=== PATIENT | male | born 1960 | race Caucasian/White ===

== ENCOUNTER 2019-04-25 11:50 | Observation (INO) ==
--- NOTE | 2019-04-25 12:01 | Emergency Department Note ---
Disposition Clinical Impression: Facial droop Chest pain Qualifiers: Chest pain type: unspecified Qualified Code(s): R07.9 - Chest pain, unspecified Hypertension Qualifiers: Hypertension type: unspecified Qualified Code(s): I10 - Essential (primary) hypertension Disposition: Home, Self-Care Condition: Good Instructions: Chest Pain (ED), Hypertension (ED) [facility] Provider[facility] - Forms: ED Satisfaction Letter, Work/School Release Time of Disposition: 18:44 General Adult HPI - General Chief complaint: ED General Medical Stated complaint: High BP Time Seen by Provider: 04/25/19 11:58 Source: patient, EMS Mode of arrival: private vehicle Limitations: no limitations Nursing Notes Reviewed: Yes Vital Signs Reviewed: Yes - History of Present Illness HPI Narrative: Patient is a 58-year-old male with a past medical history including hypertension, hyperlipidemia, seizure history, presenting with a chief complaint of elevated blood pressures and chest pain. Patient states he has several episodes today of substernal chest pain which he describes as a crampy feeling in associated with some shortness of breath, no nausea or vomiting or diaphoresis. He states it has been happening frequently over the past several months. He can happen whenever. He denies any cough, recent illnesses, fevers or chills, abdominal pain. He states he followed up with his rails developer yesterday. 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 He was told about stroke symptoms watch out for. He states he looked at himself in the [facility] yesterday afternoon and thought he had a left facial droop. He denies any unilateral weakness or numbness, headaches, dizziness, loss of vision. He states he developed the same chest pain this morning and [facility] or [facility] care [facility]. He states his blood pressure has been elevated yesterday and today. They recommended coming to the emergency department for further evaluation. Denies history of coronary artery disease or stent placements. Pain Scale: 0 - Related Data Allergies Allergy/AdvReac Type Severity Reaction Status Date / Time bupropion [From Wellbutrin] Allergy Rash Verified 04/25/19 12:01 yellow fever vaccine live Allergy See Verified 04/25/19 12:01 Comments All systems ED: reviewed and negative except as stated. Review of Systems: As Per HPI Constitutional: Denies: fever, chills Eyes: Denies: vision change ENT ED: Denies: congestion Cardiovascular: Reports: chest pain. Denies: palpitations Respiratory: Reports: dyspnea. Denies: cough Gastrointestinal: Denies: abdominal pain, nausea, vomiting Neurological: Denies: headache, weakness, numbness, paresthesias, confusion, abnormal gait Past Medical History - Past Medical History Attestation: Yes The following information was validated with the patient. Source: patient Medical history: Reports: hyperlipidemia, hypertension, seizures Psychiatric history: Reports: bipolar, PTSD - Social History Smoking Status: Current every day smoker Smokeless Tobacco Status: No Alcohol use: Reports: none Drug use: Reports: marijuana Physical Exam - General Limitations: no limitations General appearance: alert, in no apparent distress - Head Head exam: atraumatic, normocephalic - Eye Eye exam: Present: normal appearance, PERRL, EOMI, other (left lazy eye). Absent: nystagmus - ENT ENT exam: normal exam, normal oropharynx, mucous membranes moist - Neck Neck exam: Present: normal inspection, trachea midline - Chest Chest inspection: Present: normal inspection, symmetric chest wall rise - Respiratory Respiratory exam: Present: normal lung sounds bilaterally. Absent: respiratory distress, wheezes - Cardiovascular Cardiovascular exam: Present: regular rate, normal rhythm, normal heart sounds, other (bilateral radial pusles equal) - Abdominal Exam Abdominal exam: Present: soft, Non-Tender. Absent: distention - Extremities Exam Extremities exam: Present: normal capillary refill. Absent: pedal edema, calf tenderness - Neurological Exam Neurological exam: Present: alert, oriented X3, normal gait. Absent: motor sensory deficit - Expanded Neurological Exam Speech: Present: fluid speech Cerebellar function: finger to nose: Normal, heel to diaz: Normal Motor strength - LUE: 5/5 Motor strength - RUE: 5/5 Motor strength - LLE: 5/5 Motor strength - RLE: 5/5 Upper motor neuron exam: rikki neglect: Absent bilaterally, pronator drift: Absent bilaterally Sensory exam upper extremity: light touch: Normal Sensory exam lower extremity: light touch: Normal - Psychiatric Psychiatric exam: Present: normal affect, normal mood - Skin Skin exam: Present: warm, dry. Absent: diaphoresis, pallor Course Vital Signs Temperature 97.7 F 04/25/19 11:57 Pulse Rate 63 04/25/19 11:57 Respiratory Rate 15 04/25/19 11:57 Blood Pressure 152/92 04/25/19 11:57 O2 Sat by Pulse Oximetry 98 04/25/19 11:57 Temperature 97.7 F 04/25/19 11:57 Pulse Rate 68 04/25/19 14:37 Respiratory Rate 22 04/25/19 14:37 Blood Pressure 147/69 04/25/19 14:37 O2 Sat by Pulse Oximetry 100 04/25/19 14:37 Oxygen Delivery Oxygen Delivery Room Air Medical Decision Making - MDM Narrative Medical decision making narrative: Patient is presenting with headache and chest pain. He states episodes of chest pain or shortness of breath occur frequently over the past several months. He is in no acute distress at this time. He was concerned he had a small left- sided facial droop that he noticed yesterday afternoon but he does not know how long its been there and his last normal. Small facial droop on the left is noted, unknown amount of time he has had it, otherwise smiles appropriately. NIHSS 1. He otherwise has no other neurologic deficits. Have a low clinical suspicion for TIA or CVA. We will obtain CT head without contrast, CBC, BMP, hepatic panel, troponin to evaluate for ACS and an organ damage from elevated blood pressures. He is chest pain-free at this time. EKG shows no acute ischemic changes. 13:50 Labs reviewed. No electrolyte abnormalities, hepatic panel normal. Creatinine elevated and do not have a baseline for the patient. CT head shows no acute intracranial abnormality. Chest x-ray shows no acute cardiopulmonary abnormality. 14:15 Hepatic panel was within normal limits. Will obtain MRI to evaluate for CVA 17:00 Discussed with MRI. Patient has a TELLES implant. Unable to locate the type of implant as the facility he had it done is closed and will not open until Sunday. MRI discussed with Dr. Colby, Radiology, who recommend obtaining CTA head and neck 18:30 CT results reviewed. No aneurysm, occlusion is noted. Patient will be admitted for stroke like symptoms, chest pain, ACS workup and stroke workup. Hospitalist has been paged for admission. 18:40 Discussed with hospitalist, Dr. Gonzalez, who accepts - Medical Records Medical records reviewed: Yes I reviewed the patient's medical records. - Lab Data Lab results reviewed: Yes I reviewed the patient's lab results. Result diagrams: 04/25/19 12:08 04/25/19 12:08 Lab Results 04/25/19 04/25/19 Range/Units 12:08 12:08 WBC 7.5 (4.3-11.1) K/mcL RBC 4.90 (4.19-5.50) M/mcL Hgb 15.7 (12.9-16.9) g/dL Hct 46.0 (37.5-50.1) % MCV 93.9 (83.0-100.0) fL MCH 32.0 (28.0-33.3) pg MCHC 34.1 (31.6-35.5) g/dL RDW 13.0 (11.5-14.5) % Plt Count 201 (140-400) K/mcL MPV 9.4 (9.4-12.4) fL Immature Gran % 0.3 (0-4) % Seg Neutrophils % 50.0 % Lymphocytes % 36.8 % Monocytes % 6.6 % Eosinophils % 5.2 % Basophils % 1.1 % Neutrophils # 3.8 (1.6-8.9) K/mcL Lymphocytes # 2.8 (0.6-4.6) K/mcL Monocytes # 0.5 (0.0-1.3) K/mcL Eosinophils # 0.4 (0.0-0.6) K/mcL Basophils # 0.1 (0.0-0.2) K/mcL Sodium 134 L (136-145) mEq/L Potassium 3.6 (3.5-5.1) mEq/L Chloride 105 (98-107) mEq/L Carbon Dioxide 23 (23-29) mEq/L BUN 18 (6-20) mg/dL Creatinine 1.44 H (0.70-1.30) mg/dL Est GFR ( Amer) > 60 (> 60) Est GFR (Non-Af Amer) 50 L (> 60) BUN/Creatinine Ratio 13 (6-26) Glucose 107 H (70-105) mg/dL Calculated Osmolality 280 (280-300) Calcium 9.3 (8.6-10.3) mg/dL Total Bilirubin 0.7 (0.3-1.0) mg/dL Direct Bilirubin 0.0 (0.0-0.2) mg/dL Indirect Bilirubin 0.7 (0.0-1.2) mg/dL AST 25 (13-39) Units/L ALT 25 (7-52) Units/L Alkaline Phosphatase 65 (34-104) Units/L Troponin I < 0.03 (< 0.04) ng/mL Serum Total Protein 6.8 (6.4-8.9) g/dL Albumin 4.4 (3.5-5.7) g/dL Globulin 2.4 (2.4-3.5) g/dL Albumin/Globulin Ratio 1.8 (1.1-2.2) - Radiology Data Radiology results reviewed: Yes I reviewed the patient's radiology results. Chest X-Ray 04/25/19 11:59 IMPRESSION: Normal appearing chest. No acute abnormality appreciated. D/ / Pilo Knox MD / Pilo Knox MD Interpreting Provider: Pilo Knox MD Head CT 04/25/19 11:59 IMPRESSION: No acute intracranial abnormality. Fluid opacified left middle ear canal and left mastoid air cells. D/ / 04/25/2019 12:52:58 Maximiliano Howe MD / aagtha Interpreting Provider: Maximiliano Howe MD - EKG Data EKG #1 EKG attestation: Yes I reviewed and interpreted this EKG. EKG results narrative: EKG obtained at 1159 shows sinus rhythm with heart rate 65, DC interval 191, QRS duration 104, QTC 435, no ST elevation, no ST depression, flattened T waves in V4, V5, V6, lead 3, no old EKG to compare to.
--- NOTE | 2019-04-25 12:04 | Emergency Department Note ---
Disposition Clinical Impression: Facial droop Chest pain Qualifiers: Chest pain type: unspecified Qualified Code(s): R07.9 - Chest pain, unspecified Hypertension Qualifiers: Hypertension type: unspecified Qualified Code(s): I10 - Essential (primary) hypertension Disposition: Home, Self-Care Condition: Good Time of Disposition: 18:45 General Adult HPI - General Chief complaint: ED General Medical Stated complaint: High BP Time Seen by Provider: 04/25/19 11:58 Source: patient, EMS Limitations: no limitations - History of Present Illness Pain Scale: 0 - Related Data Home Medications Medication Instructions Recorded Confirmed Acetaminophen [Tylenol] 500 mg PO PRN PRN 04/25/19 04/25/19 Aspirin 325 mg PO DAILY 04/25/19 04/25/19 Atenolol [Tenormin] 50 mg PO DAILY 04/25/19 04/25/19 Atorvastatin Calcium 80 mg PO DAILY 04/25/19 04/25/19 Budesonide/Formoterol 80/4.5 1 puff IH BID 04/25/19 04/25/19 [Symbicort 80/4.5] Cholecalciferol (D-3) [Vitamin D] 1,000 unit PO DAILY 04/25/19 04/25/19 Fluticasone Propionate [Flonase 9.9 ml NS DAILY 04/25/19 04/25/19 Allergy Relief] Lisinopril-HCTZ 10-12.5 [Prinzide 1 each PO DAILY 04/25/19 04/25/19 10-12.5] Methocarbamol [Robaxin-750] 750 mg PO 2-4XD 04/25/19 04/25/19 Perphenazine [Trilafon] 8 mg PO BID 04/25/19 04/25/19 Potassium Chloride [Klor-Con 10] 10 meq PO BID 04/25/19 04/25/19 Sertraline [Zoloft] 50 mg PO DAILY 04/25/19 04/25/19 Topiramate [Qudexy Xr] 200 mg PO BID 04/25/19 04/25/19 Allergies Allergy/AdvReac Type Severity Reaction Status Date / Time bupropion [From Wellbutrin] Allergy Rash Verified 04/25/19 12:01 yellow fever vaccine live Allergy See Verified 04/25/19 12:01 Comments Past Medical History - Past Medical History Medical history: Reports: hyperlipidemia, hypertension, seizures Psychiatric history: Reports: bipolar, PTSD - Social History Smoking Status: Current every day smoker Smokeless Tobacco Status: No Alcohol use: Reports: none Drug use: Reports: marijuana Physical Exam - General Limitations: no limitations General appearance: alert, in no apparent distress Course Vital Signs Temperature 97.7 F 04/25/19 11:57 Pulse Rate 63 04/25/19 11:57 Respiratory Rate 15 04/25/19 11:57 Blood Pressure 152/92 04/25/19 11:57 O2 Sat by Pulse Oximetry 98 04/25/19 11:57 Temperature 97.7 F 04/25/19 11:57 Pulse Rate 68 04/25/19 19:06 Respiratory Rate 18 04/25/19 19:06 Blood Pressure 162/94 04/25/19 19:06 O2 Sat by Pulse Oximetry 95 04/25/19 19:06 Oxygen Delivery Oxygen Delivery Room Air Medical Decision Making - Lab Data Result diagrams: 04/25/19 12:08 04/25/19 12:08 Lab Results 04/25/19 04/25/19 Range/Units 12:08 12:08 WBC 7.5 (4.3-11.1) K/mcL RBC 4.90 (4.19-5.50) M/mcL Hgb 15.7 (12.9-16.9) g/dL Hct 46.0 (37.5-50.1) % MCV 93.9 (83.0-100.0) fL MCH 32.0 (28.0-33.3) pg MCHC 34.1 (31.6-35.5) g/dL RDW 13.0 (11.5-14.5) % Plt Count 201 (140-400) K/mcL MPV 9.4 (9.4-12.4) fL Immature Gran % 0.3 (0-4) % Seg Neutrophils % 50.0 % Lymphocytes % 36.8 % Monocytes % 6.6 % Eosinophils % 5.2 % Basophils % 1.1 % Neutrophils # 3.8 (1.6-8.9) K/mcL Lymphocytes # 2.8 (0.6-4.6) K/mcL Monocytes # 0.5 (0.0-1.3) K/mcL Eosinophils # 0.4 (0.0-0.6) K/mcL Basophils # 0.1 (0.0-0.2) K/mcL Sodium 134 L (136-145) mEq/L Potassium 3.6 (3.5-5.1) mEq/L Chloride 105 (98-107) mEq/L Carbon Dioxide 23 (23-29) mEq/L BUN 18 (6-20) mg/dL Creatinine 1.44 H (0.70-1.30) mg/dL Est GFR ( Amer) > 60 (> 60) Est GFR (Non-Af Amer) 50 L (> 60) BUN/Creatinine Ratio 13 (6-26) Glucose 107 H (70-105) mg/dL Calculated Osmolality 280 (280-300) Calcium 9.3 (8.6-10.3) mg/dL Total Bilirubin 0.7 (0.3-1.0) mg/dL Direct Bilirubin 0.0 (0.0-0.2) mg/dL Indirect Bilirubin 0.7 (0.0-1.2) mg/dL AST 25 (13-39) Units/L ALT 25 (7-52) Units/L Alkaline Phosphatase 65 (34-104) Units/L Troponin I < 0.03 (< 0.04) ng/mL Serum Total Protein 6.8 (6.4-8.9) g/dL Albumin 4.4 (3.5-5.7) g/dL Globulin 2.4 (2.4-3.5) g/dL Albumin/Globulin Ratio 1.8 (1.1-2.2) Attestation Statement - Attestation Attestation: I examined this patient and my medical decision-making was reviewed with the Resident Physician. I agree with the documented findings, disposition and treatment plan as described except to the extent set forth below. EKG was reviewed with the resident. No acute ischemic changes. Patient presents to the ED with multiple complaints. The first one being he saw his eye doctor yesterday. They sedated visual field testing and told him he may have had a stroke. He will home and looked in the mirror and thought his mouth was drooping. Eyes any other symptoms of numbness or tingling. He does not qu ite is minimal and chest pain is been going on for a long time. Describes it as a cramping sensation in his chest nonradiating. [facility] and [facility] to come [facility]. On exam he is pleasant in no acute distress. His heart regular lungs are clear. He does have a mild droop of the left side of his mouth. His NIH is 1. Plan. Head CT. Cardiac workup. Attempted to get an MRI of the patient, however patient has a device that they were unable to confirm that was compatible. We obtained a CTA head and neck. No obvious lesions. Concerned the patient may have had a stroke. We will admit for further workup.
[2019-04-25 12:35] LABS: Basophils # 0.1 K/mcL (0.0-0.2); Basophils % 1.1 %; Eosinophils # 0.4 K/mcL (0.0-0.6); Eosinophils % 5.2 %; Hemoglobin 15.7 g/dL (12.9-16.9); Immature Granulocytes % 0.3 % (0-4); Lymphocytes # 2.8 K/mcL (0.6-4.6); Lymphocytes % 36.8 %; Mean Corpuscular HGB Conc 34.1 g/dL (31.6-35.5); Mean Corpuscular Volume 93.9 fL (83.0-100.0); Mean Platelet Volume 9.4 fL (9.4-12.4); Monocytes # 0.5 K/mcL (0.0-1.3); Monocytes % 6.6 %; Platelet Count 201 K/mcL (140-400); White Blood Count 7.5 K/mcL (4.3-11.1)
[2019-04-25 12:50] LABS: BUN/Creatinine Ratio 13 (6-26); Blood Urea Nitrogen 18 mg/dL (6-20); Calcium 9.3 mg/dL (8.6-10.3); Carbon Dioxide 23 mEq/L (23-29); Chloride 105 mEq/L (98-107); Glucose 107 mg/dL (70-105); Osmolality,Calculated 280 (280-300); Potassium 3.6 mEq/L (3.5-5.1); Sodium 134 mEq/L (136-145); Troponin I < 0.03 ng/mL (< 0.04); eGFR For African Americans > 60 (> 60); eGFR For Non-African Americans 50 (> 60)
[2019-04-25 12:54] LABS: Neutrophils # 3.8 K/mcL (1.6-8.9)
[2019-04-25 13:32] LABS: Alanine Aminotransferase 25 Units/L (7-52); Albumin 4.4 g/dL (3.5-5.7); Albumin/Globulin Ratio 1.8 (1.1-2.2); Alkaline Phosphatase 65 Units/L (34-104); Aspartate Amino Transferase 25 Units/L (13-39); Bilirubin,Indirect 0.7 mg/dL (0.0-1.2); Bilirubin,Total 0.7 mg/dL (0.3-1.0); Globulin 2.4 g/dL (2.4-3.5); Total Protein 6.8 g/dL (6.4-8.9)
[2019-04-25] MEDS ORDERED: Gadolinium Contrast Agent (WT Based) IV PRN (14:12)
[2019-04-25] MEDS ORDERED: Isovue-370 500 ML BOTTLE IVP ONE (17:07)
[2019-04-25] MEDS ORDERED: Naloxone 0.4 MG/ML INJ IVP PRN (18:44)
--- NOTE | 2019-04-25 20:24 | Internal Med History&Physical ---
Date of Encounter: 04/25/19 Time of Encounter: 20:13 Internal Medicine - H&P: HPI Chief complaint: Strokelike symptoms History of present illness: Mr. Barahona is a 58 year old male with a past medical history including hypertension, hyperlipidemia, seizure history, and COPD presenting with several complaints among which included chest pain, elevated blood pressure and concern for strokelike symptoms. Patient states for the past several months she has had intermittent episodes of substernal chest pain described as "crampy" in quality, nonradiating associated with shortness of breath. Patient denies any aggravating or alleviating symptoms. No associated nausea, diaphoresis with these episodes. No prior history of cardiac disease. No reports of prior cardiac stress testing. Patient does report a family history of heart disease. Currently smokes half pack a day. [id number] smoking history. Patient also reports that yesterday he was evaluated by his mural artist which noted "spotty peripheral vision"and was informed about his increased risk of stroke and instructed on identifying stroke-like symptoms. Patient returned home and at one point looked at himself in the mirror yesterday afternoon and thought he had noted left-sided facial drooping. He however is unsure of how long it has been there. No prior history of stroke or family history. Denies any focal weakness on one side or the other, numbness, headaches. Patient has a history of sei zures dating back to us 20s. He is currently on topiramate. Reports medication compliance but does admit to having a seizure last Sunday and that breakthrough seizures are not uncommon for him. Patient states he can typically feel when a seizure is coming on stating that he feels woozy and will usually sit down which was the case this time as well. Seizure was unwitnessed as he currently lives at home alone. He additionally developed some chest pain this morning in the setting of recent elevations in his blood pressure yesterday and today reporting a systolic blood pressure as high as the 180s. Patient reports his blood pressure normally runs in the 140s to 150s systolic. [facility] who recommended coming into the ED for further evaluation. Patient otherwise denies any recent illness, fever, chills, nausea, vomiting or diarrhea. No reports of orthopnea or lower extremity edema. On initial assessment, patient was afebrile, hemodynamically stable saturating appropriately on room air. Initial NIH of 1. Laboratory workup was unremarkable including a initial negative troponin. EKG shows sinus rhythm with nonspecific T-wave changes. Chest x-ray normal appearing. CT angiogram head and neck was performed which showed no focal arterial narrowing in the head and neck nor any acute intracranial abnormality. Admitted for chest pain and stroke workup. Past Med Surg Social Fam HX - Past Medical History Medical history: hyperlipidemia, hypertension, seizures Psychiatric history: bipolar, PTSD - Social History Smoking Status: Current every day smoker Smokeless Tobacco Status: No Alcohol use: none Drug use: marijuana Internal Medicine - H&P: Meds Acetaminophen [Tylenol] 500 mg PO BID PRN 04/25/19 [History] Aspirin 325 mg PO DAILY 04/25/19 [History] Atenolol [Tenormin] 50 mg PO QAM 04/25/19 [History] Atorvastatin Calcium 80 mg PO QAM 04/25/19 [History] Budesonide/Formoterol 80/4.5 [Symbicort 80/4.5] 1 puff IH BID 04/25/19 [History] Cholecalciferol (D-3) [Vitamin D] 1,000 unit PO BID 04/25/19 [History] Fluticasone Propionate [Flonase Allergy Relief] 9.9 ml NS DAILY 04/25/19 [History] Perphenazine [Trilafon] 8 mg PO BID 04/25/19 [History] Potassium Chloride [Klor-Con 10] 30 meq PO QAM 04/25/19 [History] Topiramate [Topamax] 200 mg PO BID 04/25/19 [History] Cetirizine HCl [Allergy Relief] 10 mg PO HS 04/26/19 [History] Lisinopril-HCTZ 20-12.5 [Prinzide 20-12.5] 1 tab PO QAM 04/26/19 [History] Methocarbamol [Robaxin] 500 mg PO BID 04/26/19 [History] Potassium Chloride [Klor-Con 10] 20 meq PO QPM 04/26/19 [History] Sertraline [Zoloft] 50 mg PO QAM 04/26/19 [History] Sildenafil Citrate [Viagra] 100 mg PO AD PRN 04/26/19 [History] Allergy/AdvReac Type Severity Reaction Status Date / Time bupropion [From Wellbutrin] Allergy Rash Verified 04/26/19 17:46 yellow fever vaccine live Allergy See Verified 04/26/19 17:46 Comments All Systems PM: A 10-system review of systems was performed and is negative for pertinent findings except as documented above in the HPI. - Constitutional Constitutional: no chills, no fever(s), no night sweats - EENT Eyes: no change in vision, no discharge, no pain, no photophobia Ears: no ear discharge, no ear pain, no tinnitus Nose, mouth and throat: no dysphagia, no nasal discharge, no neck pain, no sore throat - Cardiovascular Cardiovascular ROS IM: no chest pain, no diaphoresis, no dyspnea, no lightheaded ness, no palpitations, no syncope - Respiratory Respiratory: no cough, no dyspnea, no wheezing, no excessive phlegm production - Gastrointestinal Gastrointestinal: no abdominal pain, no diarrhea, no hematemesis, no hematoc hezia, no melena, no nausea, no vomiting - Musculoskeletal Musculoskeletal ROS IM: no numbness, no tingling - Integumentary Integumentary IM: no rash, no unusual bruising - Neurological Neurological ROS: no confusion, no convulsions, no focal weakness, no numbness, no tingling, no tremor(s) - Hematologic/Lymphatic Hematologic/Lymphatic: no easy bruising - Constitutional Vitals: Temp Pulse Resp BP Pulse Ox 97.7 F 68 18 158/92 95 04/25/19 11:57 04/25/19 19:06 04/25/19 20:00 04/25/19 20:00 04/25/19 19:06 Exam: General: Alert and oriented 3 lying in bed in no acute distress Skin:Normal color, no rash, no lesions. HEENT:EOM, pupils equal, round and reactive. Cardiovascular:Normal S1 & S2, no rubs, murmurs or gallops. No JVD. Pulse regular. Lungs:Normal breath sounds, no wheezes or crackles. Abdomen:Soft, non-tender, no rigidity. Extremities: No deformity, no edema or tenderness, no joint swelling or clubbing. Neurological:Normal cognition ; subtle left-sided facial droop noted.; cranial nurse 2 through 12 intact; sensation intact; no pronator drift; no dysmetria; strength 5 out of 5 in the upper and lower extremities bilaterally. Pulses:Carotid and radial pulses normal +2. Rest of the physical exam is non contributory Internal Med - H&P Results - Labs CBC & Chem 7: 04/26/19 05:19 04/26/19 08:28 Labs: Short CBC 04/25/19 Range/Units 12:08 WBC 7.5 (4.3-11.1) K/mcL Hgb 15.7 (12.9-16.9) g/dL Hct 46.0 (37.5-50.1) % Plt Count 201 (140-400) K/mcL Neutrophils # 3.8 (1.6-8.9) K/mcL BMP 04/25/19 12:08 Sodium 134 L Potassium 3.6 Chloride 105 Carbon Dioxide 23 BUN 18 Creatinine 1.44 H Glucose 107 H Calcium 9.3 Cardiac Enzymes 04/25/19 Range/Units 12:08 Troponin I < 0.03 (< 0.04) ng/mL Liver Function 04/25/19 Range/Units 12:08 Total Bilirubin 0.7 (0.3-1.0) mg/dL Direct Bilirubin 0.0 (0.0-0.2) mg/dL AST 25 (13-39) Units/L ALT 25 (7-52) Units/L Alkaline Phosphatase 65 (34-104) Units/L Albumin 4.4 (3.5-5.7) g/dL - Impressions ITS Impressions Chest X-Ray 04/25/19 11:59 IMPRESSION: Normal appearing chest. No acute abnormality appreciated. D/ / Pilo Knox MD / Pilo Knox MD Interpreting Provider: Pilo Knox MD Head CT 04/25/19 11:59 IMPRESSION: No acute intracranial abnormality. Fluid opacified left middle ear canal and left mastoid air cells. D/ / 04/25/2019 12:52:58 Maximiliano Howe MD / agatha Interpreting Provider: Maximiliano Howe MD Head CTA 04/25/19 17:07 IMPRESSION: No focal significant arterial narrowing in the head or the neck. D/ / Sha Stack / Sha Stack Interpreting Provider: Sha Stack Neck CTA 04/25/19 17:07 IMPRESSION: No focal significant arterial narrowing in the head or the neck. D/ / Sha Stack / Sha Stack Interpreting Provider: Sha Stack - Assessment and Plan (1) Facial droop Current Visit: Yes Status: Acute Assessment and plan: Patient presented with left-sided facial droop of unclear duration. Initial NIH score of 1. Risk factors include hypertension and smoking history. Laboratory workup unremarkable. EKG shows normal sinus rhythm CTA of the head and neck unremarkable. She has penile implant and therefore MRI was postponed until type of implant could be determined. There was subtle left-sided facial drooping on physical examination. No other focal findings on examination. Patient has a history of seizure disorder with one breakthrough seizure on Sunday. Unclear if this is contributing to current picture. Patient currently on 325 of aspirin daily. -Neurochecks -Hold antihypertensives for now to allow for permissive hypertension -Telemetry -We will obtain echocardiogram and bilateral carotid duplex -MRI postponed until determination of implant type. -Consult to neurology (2) Acute kidney injury Current Visit: Yes Status: Acute Assessment and plan: Laboratory workup notable for a creatinine of 1.44 and a estimated GFR 50. Unclear if this is patient's baseline. No prior blood work to compare to. No reports of recent changes in medications. Patient is on lisinopril. Patient otherwise denies any history of kidney disease. -We will obtain urine studies including spot protein creatinine ratio. Urinalysis. -We will start patient on gentle hydration and monitor response. (3) Chest pain Current Visit: Yes Status: Acute Assessment and plan: Patient reporting several month history of intermittent chest pain with no repo rted aggravating factors. Patient has a history of. Initial troponin negative EKG shows normal sinus rhythm with nonspecific T-wave changes. Patient currently on aspirin and atenolol and an JERRICA inhibitor. -Telemetry -Echocardiogram -Consider stress testing after completion of neurological evaluation. Qualifiers: Chest pain type: unspecified Qualified Code(s): R07.9 - Chest pain, unspecified (4) Hypertension Current Visit: Yes Status: Acute Assessment and plan: Blood pressure noted to be elevated at 152/92 on admission. Currently 162/105 Patient currently on atenolol and lisinopril. -We will hold lisinopril for now to allow for permissive hypertension due to concern for CVA/TIA Qualifiers: Hypertension type: essential hypertension Qualified Code(s): I10 - Essential (primary) hypertension (5) COPD (chronic obstructive pulmonary disease) Current Visit: Yes Status: Acute Assessment and plan: History of COPD not currently on oxygen. Patient continues to smoke half pack a day in the setting of a [id number] smoking history. No evidence of any acute exacerbation. Discussed smoking cessation. Patient refusing nicotine patch at this time -Resume home inhalers Qualifiers: Emphysema type: unspecified Qualified Code(s): J43.9 - Emphysema, unspecified (6) History of seizures Current Visit: Yes Status: Acute Assessment and plan: History of seizure disorder dating back to his 20s. Patient currently on topiramate and reports medication compliance but did have a breakthrough seizure on Sunday unwitnessed. Denies trauma or fall. -Resume topiramate (7) DVT prophylaxis Current Visit: Yes Status: Acute Assessment and plan: Subcutaneous heparin - Time Spent With Patient Total time spent is greater than 50% in coordination of care (as documented) at patient's floor/unit and/or counseling patient:
[2019-04-25] MEDS ORDERED: 0.9 % Sodium Chloride 1,000 ML IVC SCH (20:45)
[2019-04-25 21:13] LABS: Prothrombin Time 11.8 Seconds (9.4-12.1)
[2019-04-25 21:16] LABS: Activated Partial Thrombo Time 32.6 Seconds (26.0-36.0)
[2019-04-25] MEDS: Budesonide/Formoterol 80/4.5 1 PUFF INH IH SCH (21:19)
[2019-04-25 22:25] LABS: Estimated Average Glucose 114 mg/dl
[2019-04-25] MEDS: Cholecalciferol (D-3) 1,000 UNIT (25MCG) TABLET PO SCH (23:26)
[2019-04-25] MEDS: Topiramate 100 MG TABLET PO SCH (23:26)
[2019-04-25] MEDS: Perphenazine 8 MG TABLET PO SCH (23:27)
[2019-04-25] MEDS: *HR* Heparin 5,000 UNIT/ML VIAL SQ SCH (23:27)
[2019-04-26 01:36] LABS: Bilirubin,Urine Negative (Negative); Blood,Urine Negative (Negative); Clarity,Urine Clear (Clear); Color,Urine Yellow (Yellow); Glucose,Urine (UA) Normal (Normal); Ketones,Urine Negative (Negative); Leukocyte Esterase,Urine Negative (Negative); Nitrite,Urine Negative (Negative); Protein,Urine Negative (Neg-Trace); Specific Gravity,Urine > 1.030 (1.010-1.025); Urobilinogen,Urine Normal (Normal)
[2019-04-26 01:53] LABS: Amphetamine Screen,Urine Negative ng/mL (Cutoff=1000); Barbiturate Screen,Urine Negative ng/mL (Cutoff=200); Benzodiazepines Screen,Urine Negative ng/mL (Cutoff=200); Cannabinoid Screen,Urine Positive ng/mL (Cutoff = 50); Cocaine Screen,Urine Negative ng/mL (Cutoff= 300); Opiate Screen,Urine Negative ng/mL (Cutoff=300); Phencyclidine Screen,Urine Negative ng/mL (Cutoff=25)
[2019-04-26 02:06] LABS: Creatinine,Urine 127 mg/dL; Protein/Creatinine Ratio,Urine 0.06 mg/mg (0.00-0.20)
[2019-04-26] MEDS: *HR* Heparin 5,000 UNIT/ML VIAL SQ SCH ×3 (05:01→20:35)
[2019-04-26 05:29] LABS: Hemoglobin 15.7 g/dL (12.9-16.9); Mean Corpuscular HGB Conc 34.1 g/dL (31.6-35.5); Mean Corpuscular Volume 93.9 fL (83.0-100.0); Mean Platelet Volume 8.8 fL (9.4-12.4); Platelet Count 174 K/mcL (140-400); Red Cell Distribution Width 12.9 % (11.5-14.5); White Blood Count 6.8 K/mcL (4.3-11.1)
[2019-04-26 08:16] LABS: Chol/HDL Ratio 5.9 (0-4.9)
[2019-04-26] MEDS: Aspirin 325 MG TABLET PO SCH (09:07)
[2019-04-26] MEDS: Cholecalciferol (D-3) 1,000 UNIT (25MCG) TABLET PO SCH ×2 (09:07→20:35)
[2019-04-26] MEDS: Perphenazine 8 MG TABLET PO SCH ×2 (09:07→20:35)
[2019-04-26] MEDS: Topiramate 100 MG TABLET PO SCH ×2 (09:07→20:34)
[2019-04-26] MEDS: Fluticasone Propionate Nasal 50 MCG/SPRAY BOTTLE NS SCH (09:14)
[2019-04-26 09:19] LABS: Alanine Aminotransferase 26 Units/L (7-52); Albumin 4.5 g/dL (3.5-5.7); Albumin/Globulin Ratio 1.7 (1.1-2.2); Alkaline Phosphatase 63 Units/L (34-104); Aspartate Amino Transferase 25 Units/L (13-39); BUN/Creatinine Ratio 13 (6-26); Blood Urea Nitrogen 14 mg/dL (6-20); Calcium 9.4 mg/dL (8.6-10.3); Carbon Dioxide 23 mEq/L (23-29); Chloride 104 mEq/L (98-107); Globulin 2.6 g/dL (2.4-3.5); Glucose 98 mg/dL (70-105); Osmolality,Calculated 286 (280-300); Potassium 3.7 mEq/L (3.5-5.1); Sodium 138 mEq/L (136-145); Total Protein 7.1 g/dL (6.4-8.9); eGFR For African Americans > 60 (> 60); eGFR For Non-African Americans > 60 (> 60)
[2019-04-26] MEDS: Budesonide/Formoterol 80/4.5 1 PUFF INH IH SCH ×2 (10:16→22:14)
--- NOTE | 2019-04-26 12:25 | Neurology - Consult Note ---
Date of Encounter: 04/26/19 Time of Encounter: 12:22 Assessment and Plan (1) Hypertension Current Visit: Yes Status: Acute Patient has developed intermittent chest pain associated with elevated high blood pressure but he has no significant focal neurological deficits or visual complaints. Patient currently has nonfocal neurological examination. CT of the head was reviewed and it showed no significant intracranial abnormality. Neurological examination showed no cranial nerve deficits, in particular no visual field deficits and I do not believe that the patient had a stroke that caused abnormal findings on his visual testing by the batteryman. His symptoms may be related to elevated blood pressure which needed to be regulated accordingly. I do not feel that he needs further testing from neurological perspective. If MRI of the brain cannot be completed then I would recommend to continue him on aspirin and statin therapy and pursue risk factor modification. We will sign off at this time from neurology perspective and please call if any questions. Qualifiers: Hypertension type: essential hypertension Qualified Code(s): I10 - Essential (primary) hypertension History of Present Illness Chief complaint: abnormal visual testing HPI: Mr. Barahona is a 58 year old male with PMH significant for HTN and HDL, obesity who presented with abnormal visual testing. Patient reports having chest pain over the last few months. One day prior to admission patient saw eye doctor who did visual testing and found 'spotty visual field' testing and was recommended to be checked for stroke. Patient states that he did not have any specific visual complaint. he reports no focal weakness and no definitive neurological deficits. Blood pressure was elevated in the ER. Initial CT of head showed no acute intracranial abnormality. The patient will also obtained CT angiogram of the neck and head which were reported essentially normal study. No significant flow limiting arterial stenosis identified. Currently, the patient reports no significant discomforts. He is sitting in the bed eating lunch comfortably. Patient is able to walk without any difficulty. Past Med Surg Social Fam HX - Past Medical History Medical history: hyperlipidemia, hypertension, seizures Additional medical history: Seizures on average 2-4 times per week Psychiatric history: bipolar, PTSD - Past Surgical History Additional surgical history: Penile implant - Social History Smoking Status: Current every day smoker Smokeless Tobacco Status: No Alcohol use: none Drug use: marijuana Medications and Allergies Acetaminophen [Tylenol] 500 mg PO BID PRN 04/25/19 [History] Atenolol [Tenormin] 50 mg PO DAILY 04/25/19 [History] Budesonide/Formoterol 80/4.5 [Symbicort 80/4.5] 1 puff IH BID 04/25/19 [History] Cholecalciferol (D-3) [Vitamin D] 1,000 unit PO BID 04/25/19 [History] Fluticasone Propionate [Flonase Allergy Relief] 9.9 ml NS DAILY 04/25/19 [History] Methocarbamol [Robaxin-750] 750 mg PO BID 04/25/19 [History] Potassium Chloride [Klor-Con 10] 10 meq PO BID 04/25/19 [History] RX: Aspirin 325 mg PO DAILY 04/25/19 [History] RX: Atorvastatin Calcium 80 mg PO DAILY 04/25/19 [History] RX: Lisinopril-HCTZ 10-12.5 [Prinzide 10-12.5] 1 each PO DAILY 04/25/19 [History] RX: Perphenazine [Trilafon] 8 mg PO BID 04/25/19 [History] Sertraline [Zoloft] 50 mg PO DAILY 04/25/19 [History] Topiramate [Topamax] 200 mg PO BID 04/25/19 [History] Allergy/AdvReac Type Severity Reaction Status Date / Time bupropion [From Wellbutrin] Allergy Rash Verified 04/25/19 12:01 yellow fever vaccine live Allergy See Verified 04/25/19 12:01 Comments All Systems: The remainder of the systems were reviewed and are negative - Constitutional Constitutional ROS IM: anorexia (no), chills (no), daytime sleepiness (no), excessive sweating (no) - Nose, Mouth, Throat Nose, mouth and throat: abnormal hearing (no), disequilibrium (no), dizziness (no), dry mouth (no), dysphagia (no) - Cardiovascular Cardiovascular ROS IM: chest pain (yes), chest pain at rest (ys) - Gastrointestinal Gastrointestinal: abdominal pain (no) - Genitourinary Genitourinary ROS: difficulty urinating (no) - Musculoskeletal Musculoskeletal ROS IM: abnormal gait (no) - Neurological Neurological ROS: abnormal gait (no), abnormal hearing (no), abnormal movements (no), abnormal speech (no), behavioral changes (no), burning sensations (no), confusion (no) - Psychiatric Psychiatric general PM: abnormal sleep pattern (no) Physical Examination - Vital Signs Vital Signs: Initial Vital Signs Temp Pulse Resp BP Pulse Ox 97.7 F 63 15 152/92 98 04/25/19 11:57 04/25/19 11:57 04/25/19 11:57 04/25/19 11:57 04/25/19 11:57 - Constitutional General appearance: comfortable - Neurologic Sensorimotor examination: intact Detailed motor examination: grossly full strength in all extremities Motor examination - right side: 5/5: deltoids, biceps, triceps, wrist flexion, wrist extension, globe changer, hip flexors, tibialis Anterior, quadriceps, toe extension (EHL), plantarflexion Motor examination - left side: 5/5: deltoids, biceps, triceps, wrist flexion, wrist extension, hip flexors, globe changer, quadriceps, tibialis Anterior, toe extension (EHL), plantarflexion Detailed sensory examination: intact Posture: other (None) Reflex and gait examination: intact Reflexes: Biceps: 2+, Triceps: 2+, Brachioradialis: 2+, Patella: 2+, Achilles: 2+ Mental Status Examination: awake, alert, oriented to person, oriented to place, oriented to time, follows commands appropriately, answers questions appropriately, no agnosia, no aphasia, no aproxia Cranial nerve examination: PERRL, EOMI, visual oates intact, corneal reflexes brisk symmetrically, sensory to face intact, mastication intact, no facial asymmetry is present, no dysarthria, hearing is intact symmetrically, soft palate elevates bilaterally upon phonation, gag reflex intact, flexes SCM and trapezius muscles symmetrically with full power, tongue protrudes midline, no atrophy or facial fasiculations present Results - Laboratory Findings CBC and BMP: 04/26/19 05:19 04/26/19 08:28 Abnormal lab findings: Abnormal lab results MPV 8.8 fL (9.4-12.4) L 04/26/19 05:19 Sodium 134 mEq/L (136-145) L 04/25/19 12:08 Creatinine 1.44 mg/dL (0.70-1.30) H 04/25/19 12:08 Est GFR (Non-Af Amer) 50 (> 60) L 04/25/19 12:08 Glucose 107 mg/dL (70-105) H 04/25/19 12:08 Triglycerides 242 mg/dL (< 150) H 04/26/19 07:02 LDL Cholesterol, Calc 109 mg/dL (0-99) H 04/26/19 07:02 VLDL Cholesterol, Calc 48 mg/dL (< 31) H 04/26/19 07:02 HDL Cholesterol 32 mg/dL (40-59) L 04/26/19 07:02 Cholesterol/HDL Ratio 5.9 (0-4.9) H 04/26/19 07:02 Ur Specific Sullivan > 1.030 (1.010-1.025) H 04/26/19 01:16 U Marijuana (THC) Screen Positive ng/mL (Cutoff = 50) H 04/26/19 01:11 - Diagnostic Findings Additional findings: CT OF THE HEAD WITHOUT CONTRAST 04/25/2019 12:32 pm TECHNIQUE: CT of the head was performed without the administration of intravenous contrast. Dose modulation, iterative reconstruction, and/or weight based adjustment of the mA/kV was utilized to reduce the radiation dose to as low as reasonably achievable. COMPARISON: None. HISTORY: ORDERING SYSTEM PROVIDED HISTORY: left facial drop, elevated BP FINDINGS: BRAIN/VENTRICLES: There is no acute intracranial hemorrhage, mass effect or midline shift. No abnormal extra-axial fluid collection. The busch-white differentiation is maintained without evidence of an acute infarct. There is no evidence of hydrocephalus. ORBITS: The visualized portion of the orbits demonstrate no acute abnormality. SINUSES: There is a small polyp or retention cyst in the right maxillary sinus. Otherwise the paranasal sinuses are clear. There is fluid in the middle ear canal and mastoid air cells on the left. The middle ear canal and mastoid air cells on the right are patent. SOFT TISSUES/SKULL: No acute abnormality of the visualized skull or soft tissues. CT/CT head/brain wo con IMPRESSION: No acute intracranial abnormality. Fluid opacified left middle ear canal and left mastoid air cells. D/ / 04/25/2019 12:52:58 Maximiliano Howe MD / agatha Interpreting Provider: Maximiliano Howe MD INATION: CTA OF THE HEAD WITHOUT AND WITH CONTRAST; CTA OF THE NECK 04/25/2019 6:08 pm; 04/25/2019 6:09 pm: TECHNIQUE: CTA of the head/brain was performed without and with the administration of intravenous contrast. Multiplanar reformatted images are provided for review. MIP images are provided for review. Dose modulation, iterative reconstruction, and/or weight based adjustment of the mA/kV was utilized to reduce the radiation dose to as low as reasonably achievable.; CTA of the neck was performed with the administration of intravenous contrast. Multiplanar reformatted images are provided for review. MIP images are provided for review. Stenosis of the internal carotid arteries measured using NASCET criteria. Dose modulation, iterative reconstruction, and/or weight based adjustment of the mA/kV was utilized to reduce the radiation dose to as low as reasonably achievable. COMPARISON: None. HISTORY: ORDERING SYSTEM PROVIDED HISTORY: rule out CVA, has left facial droop 75 ml of isovue 370 FINDINGS: CTA NECK: AORTIC ARCH/ARCH VESSELS: Limited evaluation of the aorta demonstrates no dissection or aneurysm. Vascular calcifications are noted. Great vessel origins are patent CAROTID ARTERIES: Left: Common carotid artery, bifurcation and internal carotid artery are patent without focal narrowing or dissection. Slight limitation due to artifact is noted Right: Common carotid artery, bifurcation and internal carotid artery are patent without focal narrowing or dissection. There is slight limitation due to artifact VERTEBRAL ARTERIES: Both vertebral arteries are patent without focal narrowing. There is no dissection SOFT TISSUES: Small bilateral cervical lymph nodes are noted. There is no mass or adenopathy otherwise. There is no fluid collection. BONES: No destructive bone lesions are noted. CTA HEAD: ANTERIOR CIRCULATION: Vascular calcifications are noted. Anterior cerebral arteries are widely patent. Middle cerebral arteries are patent without focal narrowing. There is no discrete aneurysm. POSTERIOR CIRCULATION: Left distal vertebral artery is larger than the right. Both are patent without focal narrowing. Basilar artery is widely patent. Posterior cerebral arteries are patent without focal narrowing BRAIN: Brain parenchymal detail is limited. There is no midline shift. There is no large new area of abnormal density. Posterior fossa is limited. There is questionable faint low-density in the alexandru. Dural sinuses are patent.. CT/CT angio neck IMPRESSION: No focal significant arterial narrowing in the head or the neck. D/ / Sha Stack / Sha Stack Interpreting Provider: Sha Stack Consult Discharge Plan - Plan [facility]errals: [facility],PCP [Primary Care Provider] -
--- NOTE | 2019-04-26 13:46 | Internal Med Progress Note ---
Hospitalist Progress Note - Encounter Date of Encounter: 04/26/19 Time of Encounter: 13:43 - Subjective Interval History: Patient was seen and examined at bedside today. Patient is resting comfortably. Patient still has left-sided facial droop. Patient denies any chest pain right now. Patient reports however he had intermittent chest pain. Apart from this, he denies any other acute issues and concerns. - Exam Vitals: Temp Pulse Resp BP Pulse Ox 98.5 F 62 20 173/110 94 04/26/19 10:56 04/26/19 10:56 04/26/19 10:56 04/26/19 10:56 04/26/19 10:56 Exam: General: A & O 3, In no acute distress HENNT: PERRLA. Head atraumatic and makes supple CVS S1 and S2 regular, no murmur RS: Clear to air entry bilaterally, no wheeze, no crackles Abdomen: Soft and nontender. Bowel sounds normal 4 Extremities: No cyanosis, clubbing, and edema Neurology: Facial droop Motor strength 5/5 bilaterally. Sensation intact - Assessment and Plan (1) Facial droop Current Visit: Yes Status: Acute Assessment and Plan: Condition presented to the emergency department with complaint of facial droop. The CT head and CT angiogram was negative. MRI was not done due to penile implant. Neurologic: Consulted. Patient's echocardiogram is within normal limit. EKG was within normal limits. Telemetry did not show any arrhythmia. Neurologic no further recommendation at this point. Continue aspirin and statin. Continue risk factors modification. (2) Chest pain Current Visit: Yes Status: Acute Assessment and Plan: Denies any chest pain currently. Initial workup for cardiac chest pain was negative. Echocardiogram within normal limit. We will continue to monitor. (3) Hypertension Current Visit: Yes Status: Acute Assessment and Plan: Blood pressure medication has been on hold for permissive hypertension in due to possible stroke. (4) Acute kidney injury Current Visit: Yes Status: Acute Assessment and Plan: On admission was 1.44. No baseline creatinine is only able. Gentle hydration and continue to monitor. (5) COPD (chronic obstructive pulmonary disease) Current Visit: Yes Status: Acute Assessment and Plan: History of COPD. On exam no wheezing. We will continue home COPD medications. (6) History of seizures Current Visit: Yes Status: Acute Assessment and Plan: Continue home medication by Yuan. For precaution. Seizure precaution. (7) DVT prophylaxis Current Visit: Yes Status: Acute Assessment and Plan: Subcutaneous heparin - Time Spent with Patient Total time spent is greater than 50% in coordination of care (as documented) at patient's floor/unit and/or counseling patient: 25 - 35 minutes Plan of Care Discussed with: patient Internal Medicine: Result - Labs CBC & Chem 7: 04/26/19 05:19 04/26/19 08:28 Labs: Short CBC 04/26/19 Range/Units 05:19 WBC 6.8 (4.3-11.1) K/mcL Hgb 15.7 (12.9-16.9) g/dL Hct 46.0 (37.5-50.1) % Plt Count 174 (140-400) K/mcL BMP 04/26/19 08:28 Sodium 138 Potassium 3.7 Chloride 104 Carbon Dioxide 23 BUN 14 Creatinine 1.06 Glucose 98 Calcium 9.4 Cardiac Enzymes 04/25/19 Range/Units 20:55 Troponin I < 0.03 (< 0.04) ng/mL Liver Function 04/26/19 Range/Units 08:28 Total Bilirubin 1.0 (0.3-1.0) mg/dL AST 25 (13-39) Units/L ALT 26 (7-52) Units/L Alkaline Phosphatase 63 (34-104) Units/L Albumin 4.5 (3.5-5.7) g/dL Urine 04/26/19 Range/Units 01:16 Urine Color Yellow (Yellow) Urine Clarity Clear (Clear) Urine pH 7.0 (5.0-8.0) pH Units Ur Specific [place] > 1.030 H (1.010-1.025) Urine Protein Negative (Neg-Trace) mg/dL Urine Glucose (UA) Normal (Normal) mg/dL - ABG Interpretation ABG results: PT/INR, D-dimer PT 11.8 Seconds (9.4-12.1) 04/25/19 20:55 - Impressions Impressions Head CT 04/25/19 11:59 IMPRESSION: No acute intracranial abnormality. Fluid opacified left middle ear canal and left mastoid air cells. D/ / 04/25/2019 12:52:58 Maximiliano Howe MD / agatha Interpreting Provider: Maximiliano Howe MD Head CTA 04/25/19 17:07 IMPRESSION: No focal significant arterial narrowing in the head or the neck. D/ / Sha Stack / Sha Stack Interpreting Provider: Sha Stack Neck CTA 04/25/19 17:07 IMPRESSION: No focal significant arterial narrowing in the head or the neck. D/ / Sah Stack / Sha Stack Interpreting Provider: Sha Stack Echocardiogram 04/25/19 20:32 Impressions: LVEF 60-65%. Normal LV chamber size, wall thickness and function. Atypical septal motion consistent with bundle branch block. Mild left ventricular diastolic dysfunction. Normal right ventricular structure and function. No evidence of a PFO with agitated saline contrast. No evidence of pulmonary hypertension. No significant valvular dysfunction. Left Ventricular Wall Motion: Rest Echo Findings All wall segments showed normal motion. Findings: Study Quality * Technically adequate exam. ECG Findings * Sinus rhythm with BBB. Left Ventricle * LVEF 60-65%. * Normal LV chamber size, wall thickness and function. * Atypical septal motion consistent with bundle branch block. * Mild left ventricular diastolic dysfunction. Right Ventricle * Normal right ventricular structure and function. Left Atrium * Mildly dilated left atrium. Right Atrium * Mildly dilated right atrium. Interatrial Septum * No evidence of a PFO with agitated saline contrast. Aortic Valve * Trileaflet aortic valve. * No aortic regurgitation. * No aortic stenosis. Mitral Valve * Normal mitral valve structure and function. * No mitral stenosis. * Trace mitral regurgitation. Tricuspid Valve * Normal tricuspid valve structure and function. * Trace tricuspid regurgitation. * No evidence of pulmonary hypertension. Pulmonic Valve * Normal pulmonic valve structure and function. * No pulmonic regurgitation. Aorta * Normally sized aortic root. Pericardium * The pericardium appears normal. IVC * The IVC is not well evaluated. Pulmonary Artery * Normal visualized portions of the main pulmonary artery. Consult Discharge Plan - Plan [facility]errals: [facility] [Primary Care Provider] - __ (2) Chest pain Qualifiers: Chest pain type: unspecified Qualified Code(s): R07.9 - Chest pain, unspecified (3) Hypertension Qualifiers: Hypertension type: essential hypertension Qualified Code(s): I10 - Essential (primary) hypertension
[2019-04-27] MEDS: *HR* Heparin 5,000 UNIT/ML VIAL SQ SCH ×2 (06:25→13:31)
[2019-04-27 08:06] LABS: Basophils # 0.1 K/mcL (0.0-0.2); Basophils % 0.9 %; Eosinophils # 0.4 K/mcL (0.0-0.6); Eosinophils % 6.9 %; Hematocrit 46.4 % (37.5-50.1); Hemoglobin 15.9 g/dL (12.9-16.9); Immature Granulocytes % 0.4 % (0-4); Lymphocytes # 2.3 K/mcL (0.6-4.6); Lymphocytes % 40.3 %; Mean Corpuscular HGB Conc 34.3 g/dL (31.6-35.5); Mean Corpuscular Hemoglobin 31.7 pg (28.0-33.3); Mean Corpuscular Volume 92.4 fL (83.0-100.0); Mean Platelet Volume 9.2 fL (9.4-12.4); Monocytes # 0.3 K/mcL (0.0-1.3); Neutrophils # 2.6 K/mcL (1.6-8.9); Platelet Count 192 K/mcL (140-400); Red Blood Count 5.02 M/mcL (4.19-5.50); Red Cell Distribution Width 12.9 % (11.5-14.5); Segmented Neutrophils % 45.5 %; White Blood Count 5.6 K/mcL (4.3-11.1)
[2019-04-27 08:25] LABS: BUN/Creatinine Ratio 14 (6-26); Blood Urea Nitrogen 14 mg/dL (6-20); Carbon Dioxide 22 mEq/L (23-29); Chloride 106 mEq/L (98-107); Glucose 102 mg/dL (70-105); Osmolality,Calculated 289 (280-300); Potassium 3.5 mEq/L (3.5-5.1); Sodium 139 mEq/L (136-145); eGFR For African Americans > 60 (> 60); eGFR For Non-African Americans > 60 (> 60)
--- NOTE | 2019-04-27 09:02 | Neurology Progress Note ---
Date of Encounter: 04/27/19 Time of Encounter: 09:00 Assessment and Plan (1) Hypertension Current Visit: Yes Status: Acute Patient has developed intermittent chest pain associated with elevated high blood pressure but he has no significant focal neurological deficits or visual complaints. Patient currently has nonfocal neurological examination. CT of the head was reviewed and it showed no significant intracranial abnormality. Neurological examination showed no cranial nerve deficits, in particular no visual field deficits and I do not believe that the patient had a stroke that caused abnormal findings on his visual testing by the teacher adult education. His symptoms may be related to elevated blood pressure which needed to be regulated accordingly. Patient BP still elevated. Neurologically he is stable but still has a mild left facial droop. Would recommend a repeat CT of head without contrast. Qualifiers: Hypertension type: essential hypertension Qualified Code(s): I10 - Essential (primary) hypertension (2) Facial droop Current Visit: Yes Status: Acute Due to the fact that he still has left facial droop i would get a repeat CT of head without contrast. Otherwise continue current regimen no changes. Subjective Principal diagnosis: facial droop Interval history: Patient seen and examined at the bedside. he is feeling fine and no specific ne urological complaint. He still has slight left facial droop though. No limb weakness. Had a slight head last night. Unable to get MRI of brain due to penile implant. Objective - Constitutional Vitals: Temp Pulse Resp BP Pulse Ox 97.8 F 60 16 154/110 99 04/27/19 08:00 04/27/19 08:00 04/27/19 08:00 04/27/19 08:00 04/27/19 04:05 - Neurological Exam Sensorimotor examination: Present: intact Motor Examination: Present: grossly full strength in all extremities Motor examination - right side: 5/5: deltoids, biceps, triceps, wrist flexion, wrist extension, refrigeration lead, hip flexors, tibialis Anterior, quadriceps, toe extension (EHL), plantarflexion Motor examination - left side: 5/5: deltoids, biceps, triceps, wrist flexion, wrist extension, hip flexors, refrigeration lead, quadriceps, tibialis Anterior, toe extension (EHL), plantarflexion Sensation intact: Present: intact Posture: Present: other (None) Reflex and gait examination: intact Reflexes: Biceps: 1+, Triceps: 1+, Brachioradialis: 1+, Patella: 1+, Achilles: 1+ Mental Status Examination: Present: awake, alert, oriented to person, oriented to place, oriented to time, follows commands appropriately, answers questions appropriately, no agnosia, no aphasia, no aproxia Cranial nerve examination: Present: PERRL, EOMI, visual oates intact, corneal reflexes brisk symmetrically, sensory to face intact, mastication intact, no facial asymmetry is present, no dysarthria, hearing is intact symmetrically, soft palate elevates bilaterally upon phonation, gag reflex intact, flexes SCM and trapezius muscles symmetrically with full power, tongue protrudes midline, no atrophy or facial fasiculations present Results - Laboratory Findings CBC and BMP: 04/27/19 06:32 04/27/19 06:32 Abnormal lab findings: Abnormal lab results MPV 9.2 fL (9.4-12.4) L 04/27/19 06:32 Sodium 134 mEq/L (136-145) L 04/25/19 12:08 Carbon Dioxide 22 mEq/L (23-29) L 04/27/19 06:32 Creatinine 1.44 mg/dL (0.70-1.30) H 04/25/19 12:08 Est GFR (Non-Af Amer) 50 (> 60) L 04/25/19 12:08 Glucose 107 mg/dL (70-105) H 04/25/19 12:08 Triglycerides 242 mg/dL (< 150) H 04/26/19 07:02 LDL Cholesterol, Calc 109 mg/dL (0-99) H 04/26/19 07:02 VLDL Cholesterol, Calc 48 mg/dL (< 31) H 04/26/19 07:02 HDL Cholesterol 32 mg/dL (40-59) L 04/26/19 07:02 Cholesterol/HDL Ratio 5.9 (0-4.9) H 04/26/19 07:02 Ur Specific [place] > 1.030 (1.010-1.025) H 04/26/19 01:16 U Marijuana (THC) Screen Positive ng/mL (Cutoff = 50) H 04/26/19 01:11 Consult Discharge Plan - Plan [facility]errals: [facility] [Primary Care Provider] -
[2019-04-27] MEDS: Budesonide/Formoterol 80/4.5 1 PUFF INH IH SCH ×2 (09:21→19:46)
[2019-04-27] MEDS: Cholecalciferol (D-3) 1,000 UNIT (25MCG) TABLET PO SCH ×2 (10:00→20:43)
[2019-04-27] MEDS: Perphenazine 8 MG TABLET PO SCH ×2 (10:00→20:43)
[2019-04-27] MEDS: Topiramate 100 MG TABLET PO SCH ×2 (10:00→20:43)
[2019-04-27] MEDS: Aspirin 325 MG TABLET PO SCH (10:00)
--- NOTE | 2019-04-27 11:47 | Internal Med Progress Note ---
Hospitalist Progress Note - Encounter Date of Encounter: 04/27/19 Time of Encounter: 11:45 - Subjective Interval History: She was seen and examined today. Patient is doing well. Patient still has mild left-sided facial droop. No weakness. Patient denies any acute issues and concerns 1. - Exam Vitals: Temp Pulse Resp BP Pulse Ox 98 F 55 20 155/96 90 04/27/19 11:30 04/27/19 11:30 04/27/19 11:30 04/27/19 11:30 04/27/19 11:30 Exam: General: A & O 3, In no acute distress HENNT: PERRLA. Head atraumatic and makes supple CVS S1 and S2 regular, no murmur RS: Clear to air entry bilaterally, no wheeze, no crackles Abdomen: Soft and nontender. Bowel sounds normal 4 Extremities: No cyanosis, clubbing, and edema Neurology: Mild facial droop. Cranial II through XII normal. Motor strength 5/5 bilaterally. Sensation intact - Assessment and Plan (1) Facial droop Current Visit: Yes Status: Acute Assessment and Plan: As initially presented with left-sided facial droop. Initial CT scan was within normal limit. Patient was admitted for respiratory modification. Continue aspirin and statin. CT head to be repeated today. We will follow neurology recommendation. (2) Chest pain Current Visit: Yes Status: Acute Assessment and Plan: . Workup has been negative so far including echocardiogram. Patient denies chest pain. Follow-up outpatient (3) Hypertension Current Visit: Yes Status: Acute Assessment and Plan: Resume percussion medication today. Patient is hypertensive. (4) Acute kidney injury Current Visit: Yes Status: Acute Assessment and Plan: . Resolved creatinine today 0.98 (5) COPD (chronic obstructive pulmonary disease) Current Visit: Yes Status: Acute Assessment and Plan: Continue home inhalers. (6) History of seizures Current Visit: Yes Status: Acute Assessment and Plan: Continue to monitor. Continue Topamax. (7) DVT prophylaxis Current Visit: Yes Status: Acute Assessment and Plan: Subcutaneous heparin - Time Spent with Patient Total time spent is greater than 50% in coordination of care (as documented) at patient's floor/unit and/or counseling patient: 25 - 35 minutes Plan of Care Discussed with: patient Internal Medicine: Result - Labs CBC & Chem 7: 04/27/19 06:32 04/27/19 06:32 Labs: Short CBC 04/27/19 Range/Units 06:32 WBC 5.6 (4.3-11.1) K/mcL Hgb 15.9 (12.9-16.9) g/dL Hct 46.4 (37.5-50.1) % Plt Count 192 (140-400) K/mcL Neutrophils # 2.6 (1.6-8.9) K/mcL BMP 04/27/19 06:32 Sodium 139 Potassium 3.5 Chloride 106 Carbon Dioxide 22 L BUN 14 Creatinine 0.98 Glucose 102 Calcium 9.0 - ABG Interpretation ABG results: PT/INR, D-dimer PT 11.8 Seconds (9.4-12.1) 04/25/19 20:55 - Impressions Impressions Echocardiogram 04/25/19 20:32 Impressions: LVEF 60-65%. Normal LV chamber size, wall thickness and function. Atypical septal motion consistent with bundle branch block. Mild left ventricular diastolic dysfunction. Normal right ventricular structure and function. No evidence of a PFO with agitated saline contrast. No evidence of pulmonary hypertension. No significant valvular dysfunction. Left Ventricular Wall Motion: Rest Echo Findings All wall segments showed normal motion. Findings: Study Quality * Technically adequate exam. ECG Findings * Sinus rhythm with BBB. Left Ventricle * LVEF 60-65%. * Normal LV chamber size, wall thickness and function. * Atypical septal motion consistent with bundle branch block. * Mild left ventricular diastolic dysfunction. Right Ventricle * Normal right ventricular structure and function. Left Atrium * Mildly dilated left atrium. Right Atrium * Mildly dilated right atrium. Interatrial Septum * No evidence of a PFO with agitated saline contrast. Aortic Valve * Trileaflet aortic valve. * No aortic regurgitation. * No aortic stenosis. Mitral Valve * Normal mitral valve structure and function. * No mitral stenosis. * Trace mitral regurgitation. Tricuspid Valve * Normal tricuspid valve structure and function. * Trace tricuspid regurgitation. * No evidence of pulmonary hypertension. Pulmonic Valve * Normal pulmonic valve structure and function. * No pulmonic regurgitation. Aorta * Normally sized aortic root. Pericardium * The pericardium appears normal. IVC * The IVC is not well evaluated. Pulmonary Artery * Normal visualized portions of the main pulmonary artery. Head CT 04/27/19 09:18 IMPRESSION: No acute intracranial abnormality. Stable opacification of the left middle ear and mastoid air cells. D/ / Jose Armando Gonzalez MD / Jose Armando Gonzalez MD Interpreting Provider: Jose Armando Gonzalez MD Consult Discharge Plan - Plan Referrals: [facility] [Primary Care Provider] - (2) Chest pain Qualifiers: Chest pain type: unspecified Qualified Code(s): R07.9 - Chest pain, unspecified (3) Hypertension Qualifiers: Hypertension type: essential hypertension Qualified Code(s): I10 - Essential (primary) hypertension (5) COPD (chronic obstructive pulmonary disease) Qualifiers: Emphysema type: unspecified Qualified Code(s): J43.9 - Emphysema, unspecified
[2019-04-27] MEDS: Lisinopril-HCTZ 20-12.5mg TABLET PO SCH (13:31)
[2019-04-27] MEDS: Fluticasone Propionate Nasal 50 MCG/SPRAY BOTTLE NS SCH (13:32)
[2019-04-27] MEDS ORDERED: NON-FORMULARY MEDICATION 1 EACH EACH (Potassium Chloride [Klor-Con 10] 20 MEQ) PO SCH (18:00)
[2019-04-28 02:28] LABS: Basophils # 0.1 K/mcL (0.0-0.2); Basophils % 1.3 %; Eosinophils # 0.4 K/mcL (0.0-0.6); Eosinophils % 5.8 %; Hematocrit 46.6 % (37.5-50.1); Hemoglobin 15.9 g/dL (12.9-16.9); Immature Granulocytes % 0.3 % (0-4); Lymphocytes # 2.5 K/mcL (0.6-4.6); Mean Corpuscular HGB Conc 34.1 g/dL (31.6-35.5); Mean Corpuscular Hemoglobin 31.6 pg (28.0-33.3); Mean Corpuscular Volume 92.6 fL (83.0-100.0); Mean Platelet Volume 9.9 fL (9.4-12.4); Monocytes # 0.5 K/mcL (0.0-1.3); Monocytes % 7.1 %; Neutrophils # 3.6 K/mcL (1.6-8.9); Platelet Count 162 K/mcL (140-400); Red Blood Count 5.03 M/mcL (4.19-5.50); Red Cell Distribution Width 12.9 % (11.5-14.5); Segmented Neutrophils % 50.5 %; White Blood Count 7.1 K/mcL (4.3-11.1)
[2019-04-28 02:47] LABS: BUN/Creatinine Ratio 15 (6-26); Blood Urea Nitrogen 16 mg/dL (6-20); Calcium 9.2 mg/dL (8.6-10.3); Carbon Dioxide 22 mEq/L (23-29); Chloride 107 mEq/L (98-107); Glucose 104 mg/dL (70-105); Osmolality,Calculated 285 (280-300); Potassium 3.5 mEq/L (3.5-5.1); Sodium 137 mEq/L (136-145); eGFR For African Americans > 60 (> 60); eGFR For Non-African Americans > 60 (> 60)
[2019-04-28 02:54] LABS: Platelet Estimate Decreased (Normal)
[2019-04-28] MEDS: Cholecalciferol (D-3) 1,000 UNIT (25MCG) TABLET PO SCH (07:44)
[2019-04-28] MEDS: Topiramate 100 MG TABLET PO SCH (07:45)
[2019-04-28] MEDS: Perphenazine 8 MG TABLET PO SCH (07:45)
[2019-04-28] MEDS: Lisinopril-HCTZ 20-12.5mg TABLET PO SCH (07:45)
[2019-04-28] MEDS: Fluticasone Propionate Nasal 50 MCG/SPRAY BOTTLE NS SCH (07:46)
[2019-04-28] MEDS: Budesonide/Formoterol 80/4.5 1 PUFF INH IH SCH (08:08)
[2019-04-28 11:16] VITALS: BP 148/91
--- NOTE | 2019-04-28 13:41 | Electrocardiograph Report ---
[address] [address] Test Date: 2019-04-25 Pat Name: Jose Armando Barahona Department: EXAM1 Room: [id number] Gender: M [employer]: : [id number] Requested By: Carolina Vogel Order Number: [id number] Reading MD: Toan Tripp Measurements Intervals [place] Rate: 65 P: 47 FL: 191 QRS: 60 QRSD: 104 T: 25 QT: 418 QTc: 435 Interpretive Statements Sinus rhythm Electronically Signed On 04-28-2019 13:39:47 EDT by Toan Tripp
--- NOTE | 2019-04-28 14:11 | Discharge Summary ---
- NOTES TO OUTPATIENT PROVIDER Notes to Outpatient Provider: Follow-up with patient outpatient status post stroke. Patient got CT scan done in the hospital which did not show stroke. Patient had a repeat CT scan in 48 hours which did not show stroke either. Patient's hemoglobin is stable. Patient is currently on aspirin for stroke. Would hold aspirin until see neurology outpatient. Date of Encounter: 04/28/19 Time of Encounter: 14:08 - Discharge Diagnosis (1) Facial droop Priority: Primary Status: Acute (2) Chest pain Priority: Secondary Status: Acute Qualifiers: Chest pain type: unspecified Qualified Code(s): R07.9 - Chest pain, unspecified (3) Hypertension Priority: Secondary Status: Acute Qualifiers: Hypertension type: essential hypertension Qualified Code(s): I10 - Essential (primary) hypertension (4) Acute kidney injury Priority: Secondary Status: Acute (5) COPD (chronic obstructive pulmonary disease) Priority: Secondary Status: Acute Qualifiers: Emphysema type: unspecified Qualified Code(s): J43.9 - Emphysema, unspecified (6) History of seizures Priority: Secondary Status: Acute (7) DVT prophylaxis Priority: Secondary Status: Acute Hospital course: Mr. Barahona is a 58 year old male with past medical history of hypertension, hyperlipidemia, COPD, status post penile implant presents to the hospital with complaint of facial droop. Upon initial presentation patient's EKG was within normal limit blood work was within normal limits CT head was within normal limits. Patient had echocardiogram done during the hospital course which was within normal limit.. Then unable to get MRI done because of his penile implant. Neurology was consulted. Neurology advised to get repeat CT scan in 48 hours which was obtained which was within normal limits. Neurology recommended continue aspirin and statin. During the hospital course patient had a GI bleed once. After that it stopped and patient did not complain of GI bleed. Patient reported that he had colonoscopy done a few years ago which was normal. Patient hemoglobin was stable. Patient was advised to continue statin and risk factor medication. Patient was advised to follow with primary Provider within one week. Patient was advised to follow-up with neurology in couple of week. Advised to hold ASA until he sees PCP and Neurology. ASA to be started outpatient f no more GI bleed is experienced. Discharge discussed with: patient, family, nurse, social work - Time Spent with Patient Total time spent providing and/or coordinating discharge services: 40 Time spent: Greater than 30 minutes - Discharge Medications Prescriptions: Continued Perphenazine [Trilafon] 8 mg PO BID Cholecalciferol (D-3) [Vitamin D] 1,000 unit PO BID Atorvastatin Calcium 80 mg PO QAM Acetaminophen [Tylenol] 500 mg PO BID PRN PRN Reason: Headache Fluticasone Propionate [Flonase Allergy Relief] 9.9 ml NS DAILY Budesonide/Formoterol 80/4.5 [Symbicort 80/4.5] 1 puff IH BID Atenolol [Tenormin] 50 mg PO QAM Topiramate [Topamax] 200 mg PO BID Cetirizine HCl [Allergy Relief] 10 mg PO HS Lisinopril-HCTZ 20-12.5 [Prinzide 20-12.5] 1 tab PO QAM Methocarbamol [Robaxin] 500 mg PO BID Potassium Chloride [Klor-Con 10] 20 meq PO QPM Sertraline [Zoloft] 50 mg PO QAM Sildenafil Citrate [Viagra] 100 mg PO AD PRN PRN Reason: Erectile Dysfunction Discontinued Potassium Chloride [Klor-Con 10] 30 meq PO QAM Aspirin 325 mg PO DAILY Home Medications: Acetaminophen [Tylenol] 500 mg PO BID PRN 04/25/19 [History] Atenolol [Tenormin] 50 mg PO QAM 04/25/19 [History] Atorvastatin Calcium 80 mg PO QAM 04/25/19 [History] Budesonide/Formoterol 80/4.5 [Symbicort 80/4.5] 1 puff IH BID 04/25/19 [History] Cholecalciferol (D-3) [Vitamin D] 1,000 unit PO BID 04/25/19 [History] Fluticasone Propionate [Flonase Allergy Relief] 9.9 ml NS DAILY 04/25/19 [History] Perphenazine [Trilafon] 8 mg PO BID 04/25/19 [History] Topiramate [Topamax] 200 mg PO BID 04/25/19 [History] Cetirizine HCl [Allergy Relief] 10 mg PO HS 04/26/19 [History] Lisinopril-HCTZ 20-12.5 [Prinzide 20-12.5] 1 tab PO QAM 04/26/19 [History] Methocarbamol [Robaxin] 500 mg PO BID 04/26/19 [History] Potassium Chloride [Klor-Con 10] 20 meq PO QPM 04/26/19 [History] Sertraline [Zoloft] 50 mg PO QAM 04/26/19 [History] Sildenafil Citrate [Viagra] 100 mg PO AD PRN 04/26/19 [History] Allergies/Adverse Reactions: Allergy/AdvReac Type Severity Reaction Status Date / Time bupropion [From Wellbutrin] Allergy Rash Verified 04/26/19 17:46 yellow fever vaccine live Allergy See Verified 04/26/19 17:46 Comments Date of admission: 04/25/19 19:11 [facility] care physician: [facility] Consults: 04/25/19 20:23 Consult to Neurology [CONS] Routine Consulting Provider: Neurology [facility] Reason for Consult: TIA/CVA workup. Call Completed: No 04/25/19 20:32 Consult to Separator Operator [CONS] Routine Reason for SW Consult: Financial concerns Discharging clinician: Maximilian Colby - Constitutional Vitals: Temp Pulse Resp BP Pulse Ox 97.9 F 56 15 148/91 96 04/28/19 07:36 04/28/19 11:15 04/28/19 11:15 04/28/19 11:15 04/28/19 08:09 General appearance: Present: cooperative, A&O X 3 Exam: General: A & O 3, In no acute distress HENNT: PERRLA. Head atraumatic and makes supple CVS S1 and S2 regular, no murmur RS: Clear to air entry bilaterally, no wheeze, no crackles Abdomen: Soft and nontender. Bowel sounds normal 4 Extremities: No cyanosis, clubbing, and edema Neurology: Mild facial droop. Cranial II through XII normal. Motor strength 5/5 bilaterally. Sensation intact - Patient Status Disposition: Home, Self-Care Overall status at discharge: patient is progressing back to baseline - Discharge Instructions Follow Up With: [facility] [Primary Care Provider] - - Diet and Activity Activity: as per physical therapy Diet: diabetic diet, low salt diet
== END 2019-04-28 16:39 | disposition home or self-care (01) ==
LOC: EMEROOARM 11:50 → 2NENU 11:50 → SUATTDRO 19:11 → 2NENU 20:00
PROVIDERS: ADMIT Student in an Organized Health Care Education/Training Program; ATTEND Family Medicine